=== PATIENT | male | born 1985 | race Caucasian/White ===

== ENCOUNTER 2023-06-11 11:28 | Emergency (ER) | payer OTHER, SELFPAY ==
[2023-06-11 11:32] VITALS: BP 160/111
[2023-06-11 11:58] LABS: COVID-19 Antigen Negative (Negative)
[2023-06-11 12:21] VITALS: BMI 29.9
[2023-06-11 12:23] VITALS: BP 140/91
--- NOTE | 2023-06-11 12:37 | ED.GENMED ---
History of Present Illness
<Gely Bustamante PA-C - Last Filed: 06/11/23 21:29>
General
Chief Complaint: Cold/Flu/URI Symptoms
Source: patient
Exam Limitations: none
Time Seen by Provider: 06/11/23 12:09
Nursing documentation reviewed up to this point in time: agreed with
Travel History
Have you had any contact with someone who has COVID-19?: No
Do you have any symptoms of coronavirus? Fever > 100 degrees, chills, cough, shortness of breath, sore throat, loss of taste or smell, muscle aches, or headache?: Yes
Symptoms:: uri/bodyaches
History of Present Illness
History of Present Illness:
pt is a 38 y/o M with h/o seasonal allergies
here with URI sxs x 3 days
started with cough, fever to 101, congestion and the cough is better but he now has a lot of nasal congestion and sinus pressure. has been using combination of meds, dayquil, motrin, and then started mucinex today
hasn't used a decongestant he doesn't think
went to urgent care and was tachhycardic
no cp, sob
had ekg and cxr which he was told was neg and sent her for tachycardia
pt was found to be febrile by me 101.6
no meds today
denies pleuritic pain
feels most discomfort in the face from sinus congestion
Past History
<Gely Bustamante PA-C - Last Filed: 06/11/23 21:29>
Past History
ED Past Medical History: None
ED Past Surgical History: Urological (Bilateral vasectomy)
Social History
Tobacco: Former smoker
Alcohol: Occasional
Drug: None
Employment: Employed
Review of Systems
<Gely Bustamante PA-C - Last Filed: 06/11/23 21:29>
Review of Systems
Allergies reviewed?: Yes
All Other Systems: Not applicable
Phy Exam
<eGly Bustamante PA-C - Last Filed: 06/11/23 21:29>
Physical Exam
Physical Exam:
GENERAL: Alert , in no apparent distress
EYE: pupils equal and reactive
NECK: Supple
ENT: b/l TM s clear, boggy mucosa b/l no erythema, a lot of sinus congestion; pharynx erythematous but no tonsillar hypertrophy or exudates
CARDIAC: tachycardia no edema
LUNGS: Clear breath sounds bilaterally, no acute respiratory distress, no wheezes/rales/rhonchi, occ cough
ABDOMEN: Soft, without focal tenderness, no r/g, no cvat, normal bowel sounds
NEUROLOGICAL: Alert and oriented, no focal neuro deficits
SKIN: Warm and dry, skin intact.
MUSCULOSKELETAL: No edema, well perfused.
PSYCH: Normal and appropriate interaction.
Course
<Gely Bustamante PA-C - Last Filed: 06/11/23 21:29>
Orders/Labs/Results
Orders:
Orders
06/11/23 11:36
COVID-19 Antigen Urgent
Source: Nasal Swab
Influenza A+B Rapid Molecular Urgent
GRANT Source: Nasal Swab
Specimen Description:
06/11/23 12:37
0.9% Sodium Chloride 1000 ml [Nss] 1,000 ml IV BOLUS
Acetaminophen [Tylenol] 1,000 mg PO NOW STA
Ketorolac [Toradol] 15 mg IV NOW STA
06/11/23 14:27
Electrocardiogram (*1) Urgent
Reason for Study: Palpitations
06/11/23 14:29
EKG- Treatment ONCE
06/11/23 15:07
0.9% Sodium Chloride 1000 ml [Nss] 1,000 ml IV BOLUS
Phenylephrine 0.5% Regular Spr [Obi-Synephrine 0.5% Nasal [place]] See Dose Instructions NASAL NOW STA
06/11/23 15:19
Complete Blood Count/With Diff Urgent
Comprehensive Metabolic Panel Urgent
Lactic Acid Urgent
Magnesium Urgent
Phosphorus Urgent
TSH Reflex To Free T4 Urgent
Comment: ADD ON
Blood Culture Q30M
GRANT Source: Blood/Venous
Specimen Description:
Blood Culture Q30M
GRANT Source: Blood/Venous
Specimen Description:
06/11/23 16:02
Ketorolac [Toradol] 15 mg IV NOW STA
06/11/23 16:32
Add On- LAB Urgent
Tests Added?: TSH reflex Free T
Abnormal Lab Results
06/11/23
15:19
MPV 10.7 H fL
(7.4-10.4)
Absolute Neuts (auto) 8.2 H 10^3/uL
(1.4-6.5)
Absolute Lymphs (auto) 1.0 L 10^3/uL
(1.2-3.4)
Absolute Monos (auto) 0.8 H 10^3/uL
(0.1-0.6)
Neutrophils % 81.3 H %
(42.2-75.2)
Lymphocytes % 10.0 L %
(20.5-51.1)
BUN 8 L mg/dl
(9-20)
Glucose 111 H mg/dl
(70-99)
06/11/23 15:19
06/11/23 15:19
Vital Signs
Temp: 102.5 F
Initial and Last Documented VS:
Initial Vital Signs
Temp Pulse Resp BP Pulse Ox
98.9 F 112 16 160/111 98
06/11/23 11:32 06/11/23 11:32 06/11/23 11:32 06/11/23 11:32 06/11/23 11:32
Last Documented Vital Signs
Temp Pulse Resp BP Pulse Ox
99.8 F 124 18 166/87 99
06/11/23 18:25 06/11/23 18:25 06/11/23 18:25 06/11/23 14:25 06/11/23 18:25
<Dante Saldana, DO - Last Filed: 06/11/23 18:03>
Orders/Labs/Results
Orders:
Orders
06/11/23 11:36
COVID-19 Antigen Urgent
Source: Nasal Swab
Influenza A+B Rapid Molecular Urgent
GRANT Source: Nasal Swab
Specimen Description:
06/11/23 12:37
0.9% Sodium Chloride 1000 ml [Nss] 1,000 ml IV BOLUS
Acetaminophen [Tylenol] 1,000 mg PO NOW STA
Ketorolac [Toradol] 15 mg IV NOW STA
06/11/23 14:27
Electrocardiogram (*1) Urgent
Reason for Study: Palpitations
06/11/23 14:29
EKG- Treatment ONCE
06/11/23 15:07
0.9% Sodium Chloride 1000 ml [Nss] 1,000 ml IV BOLUS
Phenylephrine 0.5% Regular Spr [Obi-Synephrine 0.5% Nasal [place]] See Dose Instructions NASAL NOW STA
06/11/23 15:19
Complete Blood Count/With Diff Urgent
Comprehensive Metabolic Panel Urgent
Lactic Acid Urgent
Magnesium Urgent
Phosphorus Urgent
TSH Reflex To Free T4 Urgent
Comment: ADD ON
Blood Culture Q30M
GRANT Source: Blood/Venous
Specimen Description:
Blood Culture Q30M
GRANT Source: Blood/Venous
Specimen Description:
06/11/23 16:02
Ketorolac [Toradol] 15 mg IV NOW STA
06/11/23 16:32
Add On- LAB Urgent
Tests Added?: TSH reflex Free T
Abnormal Lab Results
06/11/23
15:19
MPV 10.7 H fL
(7.4-10.4)
Absolute Neuts (auto) 8.2 H 10^3/uL
(1.4-6.5)
Absolute Lymphs (auto) 1.0 L 10^3/uL
(1.2-3.4)
Absolute Monos (auto) 0.8 H 10^3/uL
(0.1-0.6)
Neutrophils % 81.3 H %
(42.2-75.2)
Lymphocytes % 10.0 L %
(20.5-51.1)
BUN 8 L mg/dl
(9-20)
Glucose 111 H mg/dl
(70-99)
06/11/23 15:19
06/11/23 15:19
Vital Signs
Initial and Last Documented VS:
Initial Vital Signs
Temp Pulse Resp BP Pulse Ox
98.9 F 112 16 160/111 98
06/11/23 11:32 06/11/23 11:32 06/11/23 11:32 06/11/23 11:32 06/11/23 11:32
Last Documented Vital Signs
Temp Pulse Resp BP Pulse Ox
99.8 F 124 18 166/87 99
06/11/23 18:25 06/11/23 18:25 06/11/23 18:25 06/11/23 14:25 06/11/23 18:25
<Gely Bustamante PA-C - Last Filed: 06/11/23 21:29>
MDM/Problems Addressed
Differential Diagnosis Includes:
influenza, fever, uri, thyrotoxicosis
MDM/Problems Addressed:
38 y/o M with no sig pmh
here with 4 days URI sxs, fevers, cough but now mostly sinus congestion
went tto urgent care and was tachy and had ekg and cxr which was clear and pt sent here for eval
he was found to be febrile by me 101.6
pt was treated with fluids, tylenol an dtoradol
his temp initially was documetned 99.9 but HR still 120s and when i reassessed shortly later, his temp was 102.1
pt had already been given tylenol so he was given additional 15 mg toradol and another liter of fluids
labs sent
pt's labs reassuring pending TSH
he showed me his apple watch which usually shows resting heart rate 80s
but he has had previous ed visit with HR 120s from 2020.
pt reassessed after 2nd liter, still tachy 120-130s
he doesn't seem anxiuos
no cp, sob
no PE rf
d/w ed attending dr. saldana
see his note
pt still tachycardic
tsh was normal
but he is asypmatomatic and has no c/o chest pain/sob/pleuritic pain
therefore will d/c home
return precautions.
<Gely Bustamante PA-C - Last Filed: 06/11/23 21:29>
*Critical Care Note
Total Time (30-74mins, 75-104mins- exclusive of procedures): Not Applicable
ED Attending Note
<Gely Bustamante PA-C - Last Filed: 06/11/23 21:29>
-
Portions of this chart may have been created with voice recognition software.� Occasional wrong word or��sound alike� substitutions may have occurred due to the inherent limitations of voice recognition software.
<Dante Saldana DO - Last Filed: 06/11/23 18:03>
ED Attending Note
Patient seen and examined by attending physician: Yes
I performed the substantive portion of visit, reviewed & personally made and approve the management plan that is documented in note by myself or GET.: Yes
ED Attending Note:
I have seen and evaluated the patient with a [id number] encounter. I have spoken to the advance practicer provider and involved in the medical history, the physical exam, medical decision making.
Evaluation and management service: agree unless noted differently below.
Results interpretation: agree unless noted differently below.
Focused HPI: 38-year-old male presenting with upper respiratory infection. It has been ongoing for couple days. Patient denies chest pain or shortness of breath but has been coughing
Physical exam: Nasal congestion. Lungs clear. Tachycardia. No leg edema
Medical Decision Making: Patient found to be influenza positive. Patient has remained tachycardic despite antipyretics and fluids. He continues to deny any chest pain or shortness of breath which makes PE less likely. Will add on thyroid.
Patient states he feels comfortable going home and will have this followed up as an outpatient
Discharge Plan
Departure
Patient Disposition: Home (Routine Discharge)
Date of Disposition: 06/11/23
Time of Disposition: 17:58
Patient with high blood pressure during this ER visit?: No
Condition: Fair
Covid-19: Not Applicable
Discharge Problem:
Influenza A, Tachycardia
Instructions: Flu, Adult (DC), Viral Syndrome (DC), Tachycardia (DC)
Referrals:
Franklin Ayala CRNP [Family Provider] - Follow up in 2-3 days
Activity Restrictions/Additional Instructions:
YOUR CHEST XRAY WAS CLEAR
YOU TESTED POSITIVE FOR THE FLU
YOU SHOULD TAKE TYLENOL EVERY 6 HOURS AND MOTRIN 600 MG EVERY 8 HOURS FOR YOUR FEVERS
DRINK PLENTY OF FLUIDS
YOUR HEART RATE WAS ELEVATED, BUT THIS COULD BE FROM DEHYDRATION AND FLU-LIKE ILLNESS
WE DID SEND OFF THYROID STUDIES AND IF ABNORMAL, WE WILL CALL YOU.
YOU SHOULD FOLLOW UP WITH YOUR DOCTOR ESPECIALLY IF YOUR HEART RATE IS ELEVATED STILL
HAVE A LOW THRESHOLD FOR RETURNING FOR CHEST PAIN, SHORTNESS OF BREATH, PASSING OUT, PAINFUL BREATHING, OR ANY CONCERNS.
FOR YOUR NASAL CONGESTION YOU CAN USE ZYRTEC AND FLONASE
AND A MIGUEL ANGEL MED SINUS RINSE (OVER THE COUNTER BOTTLE TO RINSE YOUR SINUSES)
PROBABLY AVOID DECONGESTANTS BECUASE YOUR HEART RATE IS ELEVATED.
Interventions
Interventions:
*Risk Screen - Suicide Last Done: 06/11/23 12:24
*General Assessment Last Done: 06/11/23 12:24
*Neglect/Abuse Screening Last Done: 06/11/23 12:24
ED- Fall Risk Assessment Last Done: 06/11/23 18:25
*ED COVID-19 Vaccine History Last Done: 06/11/23 11:32
*Nursing Disposition Last Done: 06/11/23 18:25
ED- Pulmonary Assessment Last Done: 06/11/23 14:25
Discharge Date and Time
Discharge Date/Time: 06/11/23 18:26
[2023-06-11] MEDS: TYLENOL 1000 MG PO (13:10)
[2023-06-11] MEDS: NSS 1000 IV ×2 (13:10→15:27)
[2023-06-11] MEDS: TORADOL 15 MG IV ×2 (13:11→16:07)
[2023-06-11 14:25] VITALS: BP 166/87
[2023-06-11] MEDS: NEO-SYNEPHRINE 0.5% NASAL SPRAY 1 SPRAY NASAL (15:25)
[2023-06-11 15:39] LABS: % Basophils 0.3 % (0-2); % Eosinophils 0.1 % (0-6); % Immature Granulocytes 0.3 % (0-0.5); % Neutrophils 81.3 % (42.2-75.2); Absolute Monocytes 0.8 10^3/uL (0.1-0.6); Absolute Neutrophils 8.2 10^3/uL (1.4-6.5); Hematocrit 41.8 % (39.0-52.0); Mean Corp Hgb Conc. 33.5 g/dL (33.0-37.0); Mean Corpuscular Hgb 28.7 pg (27.0-31.0); Mean Corpuscular Volume 85.7 fL (80.0-94.0); Mean Platelet Volume 10.7 fL (7.4-10.4); Nucleated Red Blood Cells % 0 % (-); Platelet Count 211 10^3/uL (130-400); Red Blood Cell Count 4.88 10^6/uL (4.70-6.10); Red Cell Dist. Width 11.9 % (11.5-14.5)
[2023-06-11 15:49] LABS: Lactic Acid 0.8 mmol/L (0.7-2.0)
[2023-06-11 15:51] LABS: ALT (SGPT) 26 U/L (0-50); AST (SGOT) 29 U/L (17-59); Albumin 3.9 g/dl (3.5-5.0); Alkaline Phosphatase 52 U/L (38-126); Blood Urea Nitrogen 8 mg/dl (9-20); Calcium 8.6 mg/dl (8.4-10.2); Carbon Dioxide 27 mmol/L (22-30); Chloride 99 mmol/L (98-107); Estimated Creatinine Clearance > 125 ml/min; Glucose 111 mg/dl (70-99); Magnesium 1.9 mg/dl (1.6-2.3); Phosphorus 2.9 mg/dl (2.5-4.5); Sodium 137 mmol/L (135-145); Total Bilirubin 0.7 mg/dl (0.2-1.3); Total Protein 6.4 g/dl (6.3-8.2); eGFR > 60.00
[2023-06-11 19:11] LABS: TSH Reflex To Free T4 1.08 uIU/ml (0.47-4.68)
== END 2023-06-11 18:26 | disposition home or self-care (01) ==
LOC: EMR 11:28
PROVIDERS: Emergency Medicine; Physician Assistant; EMERGENCY PHYSICIAN Student in an Organized Health Care Education/Training Program; FAMILY PHYSICIAN Nurse Practitioner Family
DX: J10.1 Influenza due to other identified influenza virus with other respiratory manifestations (principal); R00.0 Tachycardia, unspecified; Z87.891 Personal history of nicotine dependence; Z11.52 Encounter for screening for COVID-19
CPT/HCPCS: 99284; 96374; 96361; 96376; 80053; 83605; 83735; 84100; 84443; 85025; 87040; 87502; 87811; 93005